=== PATIENT | male | born 1930 | race Hispanic/Latino ===

== ENCOUNTER 2018-07-26 10:05 | Day surgery (SDC) | payer MEDICARE ==
[~2018-07-26 10:05] MED LIST: XYLOCAINE MPF 2% ONE
[2018-07-26] MEDS ORDERED: DIPRIVAN 10 MG/ML IV ONE (11:36)
[2018-07-26] MEDS ORDERED: WATER FOR IRRIG STERILE IR ONE (11:37)
--- NOTE | 2018-07-26 11:37 | Anesthesia Consultation ---
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
--- NOTE | 2018-07-26 11:38 | Anesthesia Day of Surgery ---
Anesthesia Day of Surgery - Day of Surgery Patient Examined: Yes Patient H&P Reviewed: Yes Patient is NPO: Yes
[2018-07-26] MEDS ORDERED: NACL 0.9% 1000 ML 1,000 ML IV SCH (12:00)
--- NOTE | 2018-07-26 12:00 | Procedure Note ---
Date of procedure: 07/26/18 Pre-op diagnosis: Jarek's Esophagus/ GERD symptoms worsened Post-op diagnosis: other (H/O Loera's Esophagus/ Erosive Esophagitis/ Gastric Erosion/ Gastritis/ H/O Radiation treatment for Prostate Cancer (which may have worsened the patient's symptoms of Erosive Esophagitis)) Procedure: EGD with Biopsy [place] [facility] [place]: CATALINA CHOWDARY Estimated blood loss: minimal Pathology: list Specimen disposition: to lab Condition: stable Disposition: observation (Treat with PPI and avoid aspirin and NSAID and anticoagulants for 5 days. Follow up in 1 to 2 weeks ([phone]).)
--- NOTE | 2018-07-26 12:10 | Operative Report ---
PROCEDURE: Esophagogastroduodenoscopy with biopsy. INDICATIONS: This is an 87-year-old white male with a history of coronary artery disease, history of erosive esophagitis with Loera's esophagus and recent history of prostate cancer for which he has been on radiation treatment and chemo treatment. He has lately had worsening of his GERD symptoms, possibly aggravated by the radiation treatment. EGD was done to assess for the severity of the erosive esophagitis and the degree of Loera's esophagus and whether it had progressed or not in the interim since the last esophagogastroduodenoscopy. DESCRIPTION OF PROCEDURE: Procedure was done after getting informed consent with MAC anesthesia. Instrument was passed through the hypopharynx into the esophagus, which again showed presence of moderate erosive esophagitis and islands of mucosal tissue suggestive of Loera's esophagus. Photo documentation and biopsy was obtained from the distal esophagus to assess for the severity of the Loera's esophagus. The stomach showed antral erosion and gastritis. No ulcers were noted in the straight or the retroverted view. Pylorus is patent. Duodenum in the first and the second portion appeared normal. Biopsy was done from the gastric antrum to rule out for H. pylori and also to assess for the severity of the gastric erosions. There was minimal bleeding associated with the procedure. No complications associated with the procedure. ASSESSMENT: History of Loera's esophagus; erosive esophagitis, probably worsened by the radiation treatment for the patient's prostate cancer; gastric erosion; gastritis. No peptic ulcer disease noted. PLAN: Plan is to treat the patient with PPI, have the patient avoid any aspirin and aspirin-related products and anticoagulants for the next few days and follow up in the office in 1-2 weeks' time. Further treatment will be according to the findings of the biopsy. Christina DEL CASTILLO was in the room throughout the entirety of the procedure. JOB# [id number] ANALISA/ROYAL
[2018-07-26 14:16] VITALS: BP 150/78
== END 2018-07-26 10:06 | disposition home or self-care (01) ==
LOC: GIO 10:05
DX: K21.0 Gastro-esophageal reflux disease with esophagitis (principal); K29.70 Gastritis, unspecified, without bleeding; K22.70 Barrett's esophagus without dysplasia; I25.10 Atherosclerotic heart disease of native coronary artery without angina pectoris; I10 Essential (primary) hypertension; I25.2 Old myocardial infarction; E11.9 Type 2 diabetes mellitus without complications; E78.00 Pure hypercholesterolemia, unspecified; Z85.46 Personal history of malignant neoplasm of prostate; Z79.899 Other long term (current) drug therapy; Z98.890 Other specified postprocedural states; Z79.82 Long term (current) use of aspirin; Z79.84 Long term (current) use of oral hypoglycemic drugs
CPT/HCPCS: 43239; 82962; 88305; 88342; J2704; J7030